=== PATIENT | female | born 1965 | race Caucasian/White ===

== ENCOUNTER → 2017-03-07 | Outpatient (CLI) | payer OTHER ==
[~2017-03-07] MED LIST: ASPIRIN 325MG325 MG PO; ATIVAN0.5 MG PO; BRILINTA90 MG PO; CYMBALTA60 MG PO; GLUCOPHAGE1000 MG PO; LOPRESSOR 25 MG25 MG PO; MICROZIDE12.5 MG PO; NEURONTIN 400400 MG PO; NITROSTAT0.4 MG SL; PLAVIX 75 MG TA75 MG PO; PRAVACHOL80 MG PO; PROTONIX 40 MG40 M1 PO; ROXICODONE TAB 55 MG PO; SYNTHROID125 MCG PO
== END ==
LOC: EMI 08:57
DX: M25.851 Other specified joint disorders, right hip (principal); M25.451 Effusion, right hip
CPT/HCPCS: 72197; A9577; J7050

== ENCOUNTER 2017-06-24 13:43 | Inpatient (IN) | payer OTHER ==
[~2017-06-24] VITALS: Ht 172.7 cm; Wt 84.8 kg
[2017-06-24 14:56] LABS: HEMOGLOBIN 16.1 gm/dl (12.3-15.3); RED BLOOD COUNT 5.12 M/UL (4.00-5.10)
[2017-06-24 15:22] LABS: BUN/CREATININE RATIO 18 (0-10)
[2017-06-24] MEDS ORDERED: ROXICODONE TAB 55 MG PO (20:30)
[2017-06-24] MEDS ORDERED: GLUCOPHAGE1000 MG PO (20:32)
[2017-06-24] MEDS ORDERED: ASPIRIN 325MG325 MG PO (20:34)
[2017-06-24] MEDS ORDERED: PLAVIX 75 MG TA75 MG PO (20:35)
[2017-06-24] MEDS ORDERED: SYNTHROID125 MCG PO (20:37)
[2017-06-24] MEDS ORDERED: MICROZIDE12.5 MG PO (20:38)
[2017-06-24] MEDS ORDERED: LOPRESSOR 25 MG25 MG PO (20:41)
[2017-06-24] MEDS ORDERED: NEURONTIN 400400 MG PO (20:42)
[2017-06-24] MEDS ORDERED: CYMBALTA60 MG PO (20:42)
[2017-06-24] MEDS ORDERED: ATIVAN0.5 MG PO (20:43)
[2017-06-25 02:15] LABS: HEMOGLOBIN 13.8 gm/dl (12.3-15.3); RED BLOOD COUNT 4.37 M/UL (4.00-5.10)
[2017-06-25 02:20] LABS: BUN/CREATININE RATIO 20 (0-10)
[2017-06-26 04:57] LABS: HEMOGLOBIN 12.7 gm/dl (12.3-15.3); RED BLOOD COUNT 4.06 M/UL (4.00-5.10)
[2017-06-26 05:11] LABS: WHITE BLOOD COUNT 9.5 K/UL (4.5-11.0)
[2017-06-26 05:22] LABS: BUN/CREATININE RATIO 21 (0-10)
--- NOTE | 2017-06-26 19:00 | NUR ---
PT LEAVING FLOOR TO GO OUTSIDE. PT EDUCATION PROVIDED STATUS POST LEFT HEART CATH. SMOKING RELEASE SIGNED AND ON CHART PRIOR TO MY SHIFT.
[2017-06-27 04:01] LABS: HEMOGLOBIN 12.3 gm/dl (12.3-15.3); RED BLOOD COUNT 3.96 M/UL (4.00-5.10); WHITE BLOOD COUNT 11.1 K/UL (4.5-11.0)
[2017-06-27 04:30] LABS: BUN/CREATININE RATIO 14 (0-10)
[2017-06-27] MEDS ORDERED: PROTONIX 40 MG40 M1 PO (11:12)
[2017-06-27] MEDS ORDERED: PRAVACHOL80 MG PO (11:13)
[2017-06-27] MEDS ORDERED: BRILINTA90 MG PO (11:13)
[2017-06-27] MEDS ORDERED: NITROSTAT0.4 MG SL (11:17)
== END 2017-06-27 11:00 | disposition home or self-care (01) | DRG 249 ==
LOC: ER1 13:43 → M/S 16:35 → PROG CARE 16:35 → ZEROF 16:35 → M/S 18:14 → PROG CARE 06-26 11:20
PROVIDERS: Emergency Medicine; Internal Medicine; ADMIT Family Medicine
PROC: 02703DZ Dilation of Coronary Artery, One Artery with Intraluminal Device, Percutaneous Approach (ICD-10-PCS; principal; 2017-06-26)
DX: I25.119 Atherosclerotic heart disease of native coronary artery with unspecified angina pectoris (principal); E87.2 Acidosis; Z95.5 Presence of coronary angioplasty implant and graft; D17.23 Benign lipomatous neoplasm of skin and subcutaneous tissue of right leg; E11.9 Type 2 diabetes mellitus without complications; E78.5 Hyperlipidemia, unspecified; M79.7 Fibromyalgia; E03.9 Hypothyroidism, unspecified; D75.1 Secondary polycythemia; F17.210 Nicotine dependence, cigarettes, uncomplicated; I10 Essential (primary) hypertension; I25.2 Old myocardial infarction; G89.4 Chronic pain syndrome; M54.5 Low back pain; Z82.49 Family history of ischemic heart disease and other diseases of the circulatory system; Z72.3 Lack of physical exercise; Z88.5 Allergy status to narcotic agent; Z88.8 Allergy status to other drugs, medicaments and biological substances; Z79.891 Long term (current) use of opiate analgesic; Z79.84 Long term (current) use of oral hypoglycemic drugs; Z79.01 Long term (current) use of anticoagulants; Z79.899 Other long term (current) drug therapy; Z79.82 Long term (current) use of aspirin; Z80.9 Family history of malignant neoplasm, unspecified; Z83.3 Family history of diabetes mellitus
CPT/HCPCS: 36415; 71010; 80048; 80053; 80061; 81001; 82550; 82553; 82962; 83036; 83605; 83735; 83874; 84443; 84484; 85025; 85027; 85347; 87040; 87086; 92928; 93005; 99285; C1725; C1769; C1876; C1887; J0583; J1644; J1650; J2250; J3010; J7030; Q9963

== ENCOUNTER → 2022-03-22 | Outpatient (CLI) | payer MEDICARE ==
[~2022-03-22] MED LIST changes: +LEVOTHYROXINE50 MCG PO; +LIVALO2 MG PO; +NORCO 7.5-3251 EACH PO; +VITAMIN B-1000 MCG/M IM
== END ==
LOC: EXRD 15:26
DX: R04.2 Hemoptysis (principal); J98.11 Atelectasis
CPT/HCPCS: 71046

== ENCOUNTER → 2022-03-27 | Outpatient (CLI) | payer MEDICARE ==
[~2022-03-27] MED LIST changes: +CYCLOBENZAPRINE5 MG PO; +FENOFIBRATE160 MG PO; +GLUCOTROL5 MG PO; +LOSARTAN POTASS25 MG PO; +PREGABALIN100 MG PO; +STIOLTO RESPIMAT4 GM INH
== END ==
LOC: LAB 12:45
DX: Z20.822 Contact with and (suspected) exposure to COVID-19 (principal); R04.2 Hemoptysis
CPT/HCPCS: U0003

== ENCOUNTER → 2022-03-29 | Day surgery (SDC) | payer MEDICARE | END | disposition home or self-care (01) | LOC: RAD 10:18 → OR 10:47 → EDSTATUS 10:47 | DX: R04.2 Hemoptysis (principal); R49.0 Dysphonia; J44.9 Chronic obstructive pulmonary disease, unspecified; F17.210 Nicotine dependence, cigarettes, uncomplicated; I25.10 Atherosclerotic heart disease of native coronary artery without angina pectoris; I25.2 Old myocardial infarction; E03.9 Hypothyroidism, unspecified; E11.9 Type 2 diabetes mellitus without complications; Z95.5 Presence of coronary angioplasty implant and graft; Z88.1 Allergy status to other antibiotic agents; Z88.5 Allergy status to narcotic agent; Z79.82 Long term (current) use of aspirin; Z79.02 Long term (current) use of antithrombotics/antiplatelets; Z79.84 Long term (current) use of oral hypoglycemic drugs | CPT/HCPCS: J7120 ==